=== PATIENT | female | born 1945 | race Caucasian/White ===

== ENCOUNTER → 2017-07-10 | Outpatient (CLI) | payer MEDICARE ==
[~2017-07-10] MED LIST: ASCO-78 PO; CALC600T4 PO; CYAN25008 PO; IOHEXOL 180 MG/ML 10 ML VIAL. ONE; NAPR220C4 PO; TAMO20TA PO; methylPREDNISolone ACETATE 40 MG/ML VIAL. ONE; methylPREDNISolone ACETATE 80 MG/ML VIAL. ONE
--- NOTE | 2017-07-10 11:21 | PN ---
DATE: 07/10/2017 PROGRESS NOTE FOR PAIN CLINIC DIAGNOSES: Lumbar radiculopathy with lumbar spinal stenosis and post-lumbar laminectomy syndrome. HISTORY OF PRESENT ILLNESS: The patient is a 72-year-old female who returns for followup status post lumbar epidural steroid injection, last seen in 02/2016. The patient did very well at about 90% improvement overall with still pain returning now for about 10 days only, she said in the low back and right lower extremity radiating into the posterior gluteus, posterior thigh, posterior calf, rating at a 10 on a scale of 10 at its worst, it is a 6-7 on a scale of 10 at its least, average about 9 over the last 10 days. The patient reports no new injury or accident that she is aware of to increase the pain. It is a cramping pain. It is sharp, dull, shooting and becomes unbearable at times. The patient reports it is very similar to that she had in 02/2016 in the right leg. The patient reports it awakens her from sleep. She sleeps about 3-4 hours a time. She has to reposition, but she can get back to sleep after that. The patient reports no new motor or sensory deficits, no new bowel or bladder incontinence or other complaints. PAST MEDICAL HISTORY: Significant for carcinoma in situ, ductal 2014, status post radiation therapy, previous history of arthritis. PAST SURGICAL HISTORY: Surgeries include lumbar laminectomy in 2001, appendectomy, hysterectomy and breast lumpectomy. CURRENT MEDICATIONS: List shows tamoxifen, vitamin C, calcium, daily baby aspirin, Aleve and vitamin B12. ALLERGIES: The patient has no known drug allergies. FAMILY HISTORY: Significant for no major medical problems or conditions that she knows of. SOCIAL HISTORY: The patient does not drink, does not smoke or use other tobacco products. He is , lives locally in [place], [place] and is currently retired. REVIEW OF SYSTEMS: The patient's review of systems is positive for those items mentioned in history of present illness. All systems reviewed is otherwise negative and well documented on the patient's chart. PHYSICAL EXAMINATION: VITAL SIGNS: Today, the patient's blood pressure is 150/64, pulse 65, respirations 18, temperature is 98.4 degrees Fahrenheit. Height is 5 feet 7 inches, weighs 175 pounds. GENERAL: The patient is awake, alert, oriented, appropriate, has a very pleasant demeanor. HEENT: Head shows normocephalic, atraumatic. The patient wears eyeglasses. Extraocular movements are intact and symmetrical. Oral cavity shows mucous membranes moist and pink. Dentition is intact. NECK: Shows anterior throat supple without palpable lymphadenopathy noted. Swallow reflex is symmetrical. CHEST: Shows normal on inspection. Breath sounds are clear to auscultation bilaterally. HEART: Shows S1 and S2 clear. No murmurs auscultated. ABDOMEN: Soft, nontender, nondistended. No rebound or guarding demonstrated. BACK: Shows spine grossly in the midline. Normal-appearing thoracic kyphosis. Some slight flattening of lumbar lordotic curvature with lumbar paraspinous musculature showing symmetry. On inspection with palpation shows some [id number] tenderness in the low lumbar distribution bilaterally, but only diffusely without radiation with palpation. No radiation, no trigger points demonstrated. No tenderness over the sacrum or sacroiliac regions. The patient shows good rotational motion of the lumbar spine, both laterally greater than 10 degrees right and left as well as extension greater than 10 degrees and forward flexion greater than 45 degrees without difficulty. LOWER EXTREMITIES: Show deep tendon reflexes at 1+ in the patellar and tendo calcaneus tendons are equal. Motor exam is strong with 5/5 dorsiflexion, extension, quadriceps and hamstring flexion and symmetrical. Peripheral pulses are 1+ posterior tibial and dorsalis pedis pulses. No peripheral edema is noted. No clubbing, no cyanosis. Lower extremities are warm and dry to touch, equal in color and appearance. Options were discussed with the patient. The patient's old chart was reviewed as her current medication regimen and updated. Current review of systems updated today as well and we will proceed with a lumbar epidural steroid injection. She did very well with this last time. Risks were again discussed including, but not limited to bleeding, infection, possibility of epidural hematoma and subsequent neurologic compromise, dural puncture, headaches, spinal cord and/or nerve damage, side effects of steroid medication and poor results regarding pain control. The patient understands and wishes to proceed. The patient will return to clinic in approximately 2 weeks for followup, was counseled on return appointment, activity level and side effects to be aware of. DIAGNOSES: Lumbar radiculopathy with lumbar spinal stenosis and post-lumbar laminectomy syndrome. PROCEDURES: Lumbar epidural steroid injection in translaminar approach at L5-S1 level using C-arm fluoroscopic guidance under sterile prep and drape using local anesthetic. Medication injected is a total of 120 mg Depo-Medrol plus 10 mL of preservative-free normal saline and 2 mL of Isovue for contrast. CONDITION AT DISCHARGE: Stable. The patient tolerated the procedure well, had no complications. KRISTIN BARTH MD DR: VARSHA/nts JOB#: [id number] / [id number]
== END | disposition home or self-care (01) ==
LOC: PNCL 08:13
PROVIDERS: ATTEND Anesthesiology
DX: M48.06 Spinal stenosis, lumbar region (principal); M54.16 Radiculopathy, lumbar region; M96.1 Postlaminectomy syndrome, not elsewhere classified; M19.90 Unspecified osteoarthritis, unspecified site; Z90.710 Acquired absence of both cervix and uterus
CPT/HCPCS: 62323; J1030; J1040

== ENCOUNTER → 2017-07-25 | Outpatient (CLI) | payer MEDICARE ==
[~2017-07-25] MED LIST changes: +ASPI-482 PO
--- NOTE | 2017-07-25 16:58 | PAIN ---
DATE OF SERVICE: 07/25/2017 PROGRESS NOTE FOR PAIN CLINIC DIAGNOSES: Lumbar radiculopathy with lumbar spinal stenosis and post-lumbar laminectomy syndrome. HISTORY OF PRESENT ILLNESS: The patient is a 72-year-old female who returns for followup status post lumbar epidural steroid injection x1 on 07/10/2016. The patient did very well initially, but only about 30% improvement overall in the right lower extremity, now with some numbness and tingling in her toes, pain in the right hip, pain in the posterior lateral thigh and in the lower leg, to the calf, and lateral posterior aspect, as well as tingling in the right toes, aching and dull pain, worse with standing and walking, better with rotational movement. She is turning and getting up and down, changing positions much more comfortably. She is getting out of bed, changing from standing to sitting, but when she is on her feet for more than about 5 minutes the pain begins to return in the right low back and right leg to a significant extent where she must sit down. This does relieve the pain for the most extent when sitting. The patient reports pain as a 9 on a scale of 10 at its worst, it is average an 8, currently is 7. The patient reports no new motor or sensory deficits, no new bowel or bladder incontinence. Reports she sleeps about 6-8 hours at time, does not awaken her from sleep. PHYSICAL EXAMINATION: VITAL SIGNS: Today, the patient's blood pressure is 140/70, pulse 83, respirations 18, temperature 98.5 degrees Fahrenheit, weight is 173 pounds. GENERAL: The patient is awake, alert, oriented, appropriate, very pleasant demeanor. HEENT: Head shows normocephalic, atraumatic. Extraocular movements are intact and symmetrical. Oral cavity, mucous membranes are moist and pink. Dentition is intact. NECK: Shows anterior throat supple without palpable lymphadenopathy noted. Swallow reflex is symmetrical. CHEST: Shows normal on inspection. Breath sounds clear to auscultation bilaterally. HEART: Shows S1 and S2 clear. No murmurs auscultated. ABDOMEN: Soft, nontender, nondistended. BACK: Shows spine grossly in the midline. Well healed surgical scars noted in the lumbar distribution. Lumbar paraspinous musculature shows firm, but symmetrical upon inspection. Palpation shows some mild tenderness to palpation, but only mildly bilaterally without radiation. No tenderness over the sacrum or sacroiliac regions. EXTREMITIES: Lower extremities showed deep tendon reflexes 1+ in the patellar and tendo calcaneus tendons. Motor exam is strong with 5/5 dorsiflexion and extension and equal. Peripheral pulses are 1+ bilaterally in posterior tibial. No peripheral edema is noted. Options were discussed with the patient and the patient's old chart was reviewed as her current medication regimen updated. Current review of systems updated today as well. We will proceed with a second in the series of lumbar epidural steroid injection with fluoroscopic guidance. Risks were again discussed including, but not limited to bleeding, infection, possibility of epidural hematoma, subsequent neurologic compromise, dural puncture headaches, spinal cord and/or nerve damage, side effects of steroid medication and poor results regarding pain control. The patient understands and wished to proceed. The patient will return to clinic in approximately 2 weeks for followup, was counseled on return appointment, activity level, and side effects to be aware of. DIAGNOSIS: Lumbar radiculopathy with lumbar spinal stenosis post lumbar laminectomy syndrome. PROCEDURE: Lumbar epidural steroid injection in translaminar approach at the L5-S1 level using C-arm fluoroscopic guidance under sterile prep and drape using local anesthetic. MEDICATIONS INJECTED: Total of 120 mg Depo-Medrol plus 10 mL preservative-free normal saline, and 2 mL Isovue for contrast. CONDITION AT DISCHARGE: Stable. The patient tolerated procedure well, had no complications. KRISTIN BARTH MD DR: VARSHA/paul JOB#: [id number] / [id number]
== END | disposition home or self-care (01) ==
LOC: PNCL 10:55
PROVIDERS: ATTEND Anesthesiology
DX: M48.06 Spinal stenosis, lumbar region (principal); M96.1 Postlaminectomy syndrome, not elsewhere classified; M54.16 Radiculopathy, lumbar region
CPT/HCPCS: 62323; J1030; J1040

== ENCOUNTER → 2017-09-11 | Outpatient (CLI) | payer MEDICARE ==
[~2017-09-11] MED LIST changes: -IOHEXOL 180 MG/ML 10 ML VIAL. ONE; -methylPREDNISolone ACETATE 40 MG/ML VIAL. ONE; -methylPREDNISolone ACETATE 80 MG/ML VIAL. ONE
--- NOTE | 2017-09-11 10:47 | KCIC ---
EXAM: Lumbar spine, 3 views. HISTORY: Spondylolisthesis. Right lower extremity radiculopathy and numbness. COMPARISON: None. FINDINGS: Lateral neutral, flexion and extension views of the lumbar spine are obtained. There is grade 1 anterolisthesis of L4 on L5, measuring 9 mm in neutral position and increasing to 10 mm with flexion. There is grade 1 anterolisthesis of L3 on L4, measuring 6 mm in neutral position and increasing to 7 mm with flexion and decreasing to 5 mm with extension. There is grade 1 anterolisthesis of L5 on S1, measuring 4 mm in neutral position without significant change between flexion and extension. There is degenerative endplate remodeling at multiple levels. There is facet arthropathy at all levels. IMPRESSION: 1. Multilevel degenerative change throughout the lumbar spine, described above. 2. Grade 1 anterolisthesis of L4 on L5, and to a lesser extent, L3 on L4 and L5 on S1. This slightly changes between flexion and extension at the aforementioned levels. Electronically signed by: Rosie Graejda MD (09/11/2017 10:44 AM) [email or web address]
== END | disposition home or self-care (01) ==
LOC: KCIC 09:53
PROVIDERS: ATTEND Neurological Surgery
DX: M51.16 Intervertebral disc disorders with radiculopathy, lumbar region (principal); M43.16 Spondylolisthesis, lumbar region; R20.0 Anesthesia of skin
CPT/HCPCS: 72100

== ENCOUNTER → 2017-09-23 | Outpatient (CLI) | payer MEDICARE ==
--- NOTE | 2017-09-23 16:02 | EKG ---
[facility] [address] [place] [address] Test Date: 2017-09-23 Test Time: 15:57:47 Pat Name: HAVEN BEJARANO Department: Room: Gender: F Chair Post Machine Operator: DORIS : 1945 Requested By: CHARLIE GODFREY Order Number: [id number] Reading MD: Gallo Burk Measurements Intervals [place] Rate: 67 P: 0 TN: 154 QRS: -1 QRSD: 70 T: 3 QT: 406 QTc: 432 Interpretive Statements SINUS RHYTHM CONSISTENT WITH INFERIOR INFARCT Electronically Signed On 09-25-2017 14:15:48 CDT by Gallo Burk
[2017-09-23 16:24] LABS: BASO % 1 % (0-3); EOS % 3 % (0-3); HEMATOCRIT 37.2 % (36.0-47.0); HEMOGLOBIN 12.3 g/dL (12.0-15.5); LYMPH # 1.5 x10^3/uL (1.0-4.8); LYMPH % 28 % (24-48); MEAN CORPUSCULAR HEMOGLOBIN 30 pg (25-35); MEAN CORPUSCULAR HGB CONC 33 g/dL (31-37); MEAN CORPUSCULAR VOLUME 91 fL (79-100); MONO % 9 % (0-9); NEUT % 59 % (31-73); PLATELET COUNT 157 x10^3/uL (140-400); WHITE BLOOD COUNT 5.4 x10^3/uL (4.0-11.0)
[2017-09-23 16:40] LABS: ALBUMIN 3.7 g/dL (3.4-5.0); ALBUMIN/GLOBULIN RATIO 1.1 (1.0-1.7); CALCIUM 10.1 mg/dL (8.5-10.1); CREATININE 0.9 mg/dL (0.6-1.0); GFR 61.2; POTASSIUM 4.7 mmol/L (3.5-5.1); TOTAL BILIRUBIN 0.2 mg/dL (0.2-1.0); TOTAL PROTEIN 7.1 g/dL (6.4-8.2)
[2017-09-23 16:42] LABS: INR 0.9 (0.8-1.1); PROTHROMBIN TIME PATIENT 11.8 SEC (11.7-14.0)
== END | disposition home or self-care (01) ==
LOC: SURGPAT 13:46
PROVIDERS: ATTEND Neurological Surgery
DX: M51.36 Other intervertebral disc degeneration, lumbar region (principal)
CPT/HCPCS: 36415; 80053; 85025; 85610; 85730; 87641; 93005

== ENCOUNTER 2017-10-03 08:00 | Inpatient (IN) | payer MEDICARE ==
[~2017-10-03] VITALS: Ht 170.2 cm; Wt 78.9 kg
[2017-10-03] VITALS (11 sets, daily range): BP systolic 115–157; BP diastolic 56–81
--- NOTE | 2017-10-03 06:54 | PREOP HP ---
DATE OF SERVICE: 10/03/2017 HISTORY OF PRESENT ILLNESS: The patient is a pleasant 72-year-old who in 2001 underwent a lumbar laminectomy and did well. The current problem is low back pain and pain which radiates into her right leg. Pain can radiate into the right anterior thigh and anterior leg. She feels there is weakness in her right leg and foot. She has undergone epidural steroid injections recently and saw that the first injection helped but the following injections did not help. When she walks distances, she rates her pain as a 7/10. Stairs are particularly difficult for her as well. Sitting helps her. She takes ibuprofen. PAST MEDICAL HISTORY: Breast cancer and back pain. PAST SURGICAL HISTORY: Lumpectomy in the left breast 2013, lumbar laminectomy 2001, appendectomy 1987, hysterectomy in 1985. FAMILY HISTORY: Cancer. SOCIAL HISTORY: Retired. . Does not smoke. Never drinks alcohol. ALLERGIES: No known drug allergies. CURRENT MEDICATIONS: Calcium, vitamin D, vitamin C, vitamin B12, tamoxifen, aspirin and Aleve. REVIEW OF SYSTEMS: A 12-point review of systems was obtained and noncontributory except for that mentioned above. NEUROSURGERY EXAMINATION: GENERAL APPEARANCE: Alert, pleasant, no acute distress. HEAD: Normocephalic, atraumatic. SKIN: Warm and dry. MUSCULOSKELETAL: Lumbar paraspinal muscle bulk is normal, restricted range of motion of the lumbar spine, [id number] tenderness of lower lumbar spine with palpation, normal range of motion of the lower extremities bilaterally. EXTREMITIES: No clubbing, cyanosis, or edema. NEUROLOGIC: Alert and oriented x 3, normal recent and remote memory, strength 5/5 in bilateral lower extremities except 4/5 right foot dorsiflexion, sensory was intact to light touch in the lower extremities bilaterally except for decrease in the distal right anterior thigh and anterior leg raising the dorsum of her right foot, reflexes were trace and symmetric in bilateral lower extremities, negative straight leg raising bilaterally, normal gait. IMAGING: I reviewed lumbar MRI scan. On that study, there are 2 principal abnormalities. The first is hypertrophic facet disease and thickened ligamentum flavum, which markedly narrows the right lateral recess, neural foramen at L4-L5 and at L5-S1 on the right, there is a large far lateral herniated disc. In addition, I reviewed lumbar flexion and extension x-rays, very limited motion at L4-L5 both flexion and extension. PLAN: At this point, I recommend a laminectomy in L4-L5 and posterior instrumented fusion with posterolateral fusion at L4-L5. Also at L5-S1 on the right a far lateral microdiscectomy. Surgical options were discussed with the patient. She understands. She would like to proceed. We will make the arrangements. CHARLIE GODFREY MD DR: HAFSA/paul JOB#: [id number] / [id number] MARIE
[~2017-10-03 08:00] MED LIST changes: +BACITRACIN 50,000 UNIT in IV NORMAL SALINE 1000ML BAG 1,000 ML IRR ONE; +BUPIVAC MPF-EPI 0.5%-1:200000 30 ML VIAL. ONE; +GELATIN SPONGE SIZE 100. ONE; +KETOROLAC 60 MG/2 ML INJ FOR OR. ONE; +THROMBIN TOPICAL 20,000 UNIT SPRAY.SYRN KIT TP ONE
[2017-10-03] MEDS ORDERED: OMEP20CA9 PO (08:27)
[2017-10-03] MEDS ORDERED: IV RINGERS,LACTATED 1000ML 1,000 ML IV SCH ×2 (08:45→10:45)
[2017-10-03] MEDS ORDERED: ONDANSETRON PF 4 MG/2 ML VIAL. ONE (09:53)
[2017-10-03] MEDS ORDERED: LIDOCAINE 2% PF Vial for OR 5 ML VIAL. ONE (09:53)
[2017-10-03] MEDS ORDERED: PROPOFOL 20 ML IV ONE (09:53)
[2017-10-03] MEDS ORDERED: DEXAMETHASONE SOD PHOS 20 MG/5 ML VIAL. ONE (09:53)
[2017-10-03] MEDS ORDERED: PROPOFOL 50 ML IV ONE (09:54)
[2017-10-03] MEDS ORDERED: REMIFENTANIL 2 MG VIAL. IV ONE ×2 (09:54→14:12)
[2017-10-03] MEDS ORDERED: fentaNYL PF VIAL 100 MCG/2 ML VIAL ONE (09:54)
[2017-10-03] MEDS ORDERED: ROCURONIUM 50 MG/5 ML VIAL. ONE (09:54)
[2017-10-03] MEDS ORDERED: PROPOFOL 100 ML IV ONE (10:19)
[2017-10-03] MEDS ORDERED: HYDROmorphone 2 MG/ML VIAL IV PRN (10:45)
[2017-10-03] MEDS ORDERED: ONDANSETRON PF 4 MG/2 ML VIAL. IV PRN ×2 (10:45→12:15)
[2017-10-03] MEDS ORDERED: PROCHLORPERAZINE 10 MG/2 ML VIAL. IV PRN (10:45)
[2017-10-03] MEDS ORDERED: LIDOCAINE 1% PF 2 ML VIAL. ID PRN (10:45)
[2017-10-03] MEDS ORDERED: fentaNYL PF VIAL 100 MCG/2 ML VIAL IV PRN ×3 (10:45→12:15)
[2017-10-03] MEDS ORDERED: PHENYLEPHRINE 10 MG/ML VIAL. ONE (11:09)
[2017-10-03] MEDS ORDERED: CALCIUM CARBONATE 500 MG TAB.CHEW PO PRN (12:15)
[2017-10-03] MEDS ORDERED: oxyCODONE/APAP 5/325 1 TAB TABLET PO PRN ×2 (12:15)
[2017-10-03] MEDS ORDERED: 0.9 % SODIUM CHLORIDE 10 ML DISP.SYRIN. IV PRN (12:15)
[2017-10-03] MEDS ORDERED: diphenhydrAMINE 50 MG/ML VIAL IV PRN (12:15)
[2017-10-03] MEDS ORDERED: diphenhydrAMINE HCL 25 MG CAPSULE PO PRN (12:15)
[2017-10-03] MEDS ORDERED: ACETAMINOPHEN 325 MG TABLET. PO PRN (12:15)
[2017-10-03] MEDS ORDERED: MAG HYDROX/ALUMINUM HYD/SIMETH 30 ML ORAL.SUSP PO PRN (12:15)
[2017-10-03] MEDS ORDERED: NALOXONE 0.4 MG/ML VIAL. IV PRN (12:15)
[2017-10-03] MEDS ORDERED: MAGNESIUM HYDROXIDE 2,400 MG/30 ML ORAL.SUSP. PO PRN (12:15)
[2017-10-03] MEDS ORDERED: TAMOXIFEN 10 MG TABLET PO SCH (13:00)
[2017-10-03] MEDS ORDERED: ceFAZolin SODIUM 1 GM in IV DEXTROSE 5% 50 ML IV SCH (14:00)
[2017-10-03] MEDS ORDERED: DESFLURANE > 120 MINUTES IH ONE (14:38)
--- NOTE | 2017-10-03 15:48 | RAD ---
CT study lumbar spine without contrast Indications: Low back pain. Right lower extremity radiculopathy. Technique: Noncontrast helical CT scanning of the lumbar spine was performed. Multiplanar 2-D reconstructions were generated. PQRS Compliance Statement: One or more of the following individualized dose reduction techniques were utilized for this examination: 1. Automated exposure control 2. Adjustment of the mA and/or kV according to patient size 3. Use of iterative reconstruction technique Findings: Mild levoscoliosis is seen. No compression fracture or discitis or osteolytic process is seen. The transverse processes are intact. Grade 1 anterolisthesis of L3-4 and L4-5 anterolisthesis and L5-S1 is seen without spondylolysis. Degenerative osteoarthritis of both SI joints is seen At T12-L1, no focal disc protrusion or spinal canal stenosis or neural foraminal narrowing is seen. At L1-L2, mild diffuse disc bulging is seen. No significant spinal canal stenosis or neural foraminal narrowing is seen. At L2-3, mild diffuse disc bulge is seen. Mild degenerative facet arthropathy and ligament fall hypertrophy and mild degenerative endplate spurring is seen. These findings combine to form a mild spinal canal stenosis. At L3-4, mild diffuse disc protrusion is seen with mild degenerative endplate spurring. Moderate degenerative facet arthropathy and ligamentum flavum hypertrophy is evident. These findings in association with the anterolisthesis combine to form a mild to moderate spinal canal stenosis worse on the right side. There is mild narrowing of the right neural foramen and moderate narrowing of the left neural foramen.. At L4-5, moderate diffuse disc protrusion is seen worse on the right side which extends into the right neural foramen (more focally prominent disc protrusion here) and may impinge the exiting right L4 nerve root. It extends into the left neural foramen as well. There is mild degenerative endplate spurring. There is severe facet arthropathy and ligamentum flavum hypertrophy. These findings in association with the anterolisthesis combine to form a moderate spinal canal stenosis at this level worse on the right side. There is narrowing of the lateral recesses bilaterally worse on the right side which may impinge the descending right L5 nerve root. There is moderate narrowing of the left neural foramen and severe narrowing of the right neural foramen. At L5-S1, there is a mild disc protrusion. There is more focally prominent disc protrusion within the right neural foramen which may impinge the exiting right L5 nerve root. Severe facet arthropathy and ligamenta flava hypertrophy is seen. These findings in association with the anterolisthesis combine to form a mild spinal canal stenosis. There is severe narrowing of the right neural foramen and mild narrowing of the left neural foramen. IMPRESSION: No compression fracture. Degenerative lumbar spondylosis and anterolisthesis as discussed above. Multilevel spinal canal stenosis and neural foraminal narrowing as discussed above. See discussion above for each level.
[2017-10-03] MEDS ORDERED: PANTOPRAZOLE 40 MG TABLET.DR. PO SCH (16:30)
[2017-10-03] MEDS: fentaNYL PF VIAL 100 MCG/2 ML VIAL IV PRN ×2 (17:06→17:14)
[2017-10-03] MEDS: MORPHINE SULFATE 4 MG/ML DISP.SYRIN. IV PRN ×2 (17:21→17:36)
[2017-10-03] MEDS: POTASSIUM CL 20MEQ D5-0.45NACL 1,000 ML IV SCH ×2 (18:13→20:29)
[2017-10-03] MEDS: DOCUSATE SODIUM 100 MG CAPSULE. PO SCH (20:39)
[2017-10-03] MEDS: METHOCARBAMOL 750 MG TABLET PO SCH ×2 (20:39→21:00)
[2017-10-03] MEDS: ceFAZolin SODIUM IV Push 1 GM VIAL. IVP SCH (20:42)
[2017-10-04 02:44] VITALS: BP 121/65
[2017-10-04] MEDS: ceFAZolin SODIUM IV Push 1 GM VIAL. IVP SCH ×2 (04:18→12:43)
[2017-10-04 06:33] VITALS: BP 111/63
[2017-10-04] MEDS: DOCUSATE SODIUM 100 MG CAPSULE. PO SCH (08:02)
[2017-10-04] MEDS: METHOCARBAMOL 750 MG TABLET PO SCH (08:03)
[2017-10-04] MEDS ORDERED: ASPIRIN ENTERIC COATED 81 MG TABLET.DR. PO SCH (09:00)
--- NOTE | 2017-10-04 09:32 | DISCH ---
DISCHARGE INSTRUCTIONS Condition on Discharge Condition on Discharge: Stable Activity After Discharge Activity Instructions for Disc: Activity as tolerated, Avoid exertion Bathing Instructions: Shower-keep dressing dry Lifting Instructions after Dis: No heavy lifting, No pulling or pushing, Do not lift >10 pounds Driving Instructions after Dis: No driving for 2 weeks Diet after Discharge Additional Diet Restrictions: resume home diet Wound Incision Care Wound/Incision Care: Ice to area for comfort Other wound/incision instructi: may remove dressing in 48 hrs if dry then may shower- no soaking Contacting the after DC Call your doctor for: Concerns you may have Follow-Up Follow up with: Dr. Godfrey's nurse in 2 weeks [phone] CHARLIE GODFREY MD Oct 04, 2017 09:32
[2017-10-04] MEDS ORDERED: DOCU-109 PO (09:34)
[2017-10-04] MEDS ORDERED: METH750T2 PO (09:34)
[2017-10-04] MEDS ORDERED: OXYC1TAB7 PO (09:34)
[2017-10-04 11:00] VITALS: BP 125/65
--- NOTE | 2017-10-04 16:18 | OP ---
DATE OF SURGERY: 10/03/2017 PREOPERATIVE DIAGNOSES: 1. Far lateral foraminal disc herniation with lumbar radiculopathy, L5-S1, right. 2. Lumbar stenosis to the L4-L5. 3. Spondylolisthesis L4-L5 with motion on lumbar flexion and extension images. OPERATION PERFORMED: 1. Right far lateral incision and approach using the METRx system with transforaminal exposure and excision of far lateral foraminal disc herniation L5-S1, right. 2. Lumbar laminectomy L4-L5 for lumbar spinal stenosis. 3. Posterior instrumentation L4-L5 with posterolateral fusion L4-L5 using allograft and autograft bone. The operation was done with stimulated EMG monitoring, fluoroscopy, microscopic dissection, BrainLAB guidance, bone marrow aspiration. SURGEON: Kevan Godfrey M.D. AIRCRAFT ENGINE MECHANIC OVERHAUL: RONEN Stafford assisted with the surgery. She assisted with the lateral microdiscectomy as well as the laminectomy, posterior instrumentation, posterolateral fusion. OPERATIVE INDICATIONS: The patient is a very pleasant 72-year-old woman who developed intractable back and right leg pain which failed conservative measures. On imaging studies, she had the above-mentioned findings and I recommended lumbar surgery at L4-L5 and L5-S1 to deal with her severe right lumbar radiculopathy. I spoke with her about the surgery, the risks, technique and the expected postoperative course and she wished to go ahead. DESCRIPTION OF PROCEDURE: Following general endotracheal anesthesia, the patient was positioned prone on the Jeanmarie table. Her lumbar region was prepped and draped in standard fashion. FARIDEH hose and AV impulse boots were applied for DVT prophylaxis. The microscope was draped. Fluoroscopy was draped and brought into the field. Ancef 2 grams given less than 1 hour prior to initiation of the surgery. Using fluoroscopic guidance, the BrainLAB pins were inserted into the left iliac crest and the BrainLAB system was initialized. A small incision was then made and a far right lateral paraspinal region allowing access to the L5-S1 far lateral portion of the facet. I used METRx dilators and placed a 22 mm portal. I tilted the table and brought in the microscope and through the microscope I drilled through the lateral portion of the facet. I then visualized the exiting L5 root and with the micro nerve root retractor, retracted the root cephalad and there was a very large subligamentous disc herniation. I incised the capsule with an arachnoid knife and then performed a very generous discectomy removing multiple large extruded fragments. As I worked, the nerve root became very well decompressed and moved back to much more normal position. Following this, then I irrigated copiously with antibiotic solution. I gently withdrew the METRx tube and assured myself of excellent hemostasis. The fascia was closed with a single stitch. The subcutaneous was closed with absorbable sutures and the skin was closed with 4-0 subcuticular stitch. The table was then tilted back toward me and I made a midline incision extending from superior L4 to inferior L5. I dissected down through the skin and subcutaneous tissue and reflected the paraspinal muscles and placed self-retaining retractors beginning on the right side and I used high speed air drill to drill down a generous laminectomy right direct and peeled away very large hypertrophic thickened ligamentum flavum performing a very generous partial foraminotomy. As I peeled this material back and created my exposure, the dura became very well decompressed and moved laterally. I drilled across the midline and trimmed with the 2.5 and 4 mm feeling Kerrison's. I did use small amounts of bone wax where necessary. I then exposed the lateral portions of the facets at L4 and L5 and the transverse processes which I excoriated with high speed air drill. I drilled into the posterior aspect of the pedicles, passed a black ball with stimulated EMG monitoring followed by tap, followed by screw placement. I used the [employer] system and placed 6.5 screws and a 55 mm rosalina and nuts were applied and torqued. I did aspirate 20 mL of bone marrow from the right iliac crest, which was used with allograft bone and the bone I saved from the laminectomy was also used to augment the bone construct which was then placed in the lateral gutter. This accomplished on the right, then I went to the left side and in a similar fashion, I exposed the pedicles and the transverse processes which I excoriated and I packed bone with allograft and autograft into the left gutter. I drilled in the posterior aspect of the pedicles using the [employer] system as well as anatomic landmarks, passed the black ball followed by tap, followed by screw placement. Again, I placed 6.5 screws. The rosalina was attached on the left side. The system was torqued. I took fluoroscopic images which I felt looked quite good. I irrigated copiously with antibiotic solution and I closed the wound in layers with absorbable suture and the skin was closed with a 4-0 subcuticular stitch. The operation went very well and the patient was awakened uneventfully. I was quite pleased with the surgery. KEVAN GODFREY MD DR: HAFSA/paul JOB#: [id number] / [id number] MARIE
--- NOTE | 2017-10-07 14:21 | PATHOLOGY ---
PATHOLOGY REPORT * * * * * * * * FINAL DIAGNOSIS: Segments of fibrocartilaginous, fibroadipose, and skeletal muscle tissue and bone, lumbar decompression and disc: - Degenerative changes of fibrocartilaginous tissue. COMMENT: There is no evidence of an acute inflammatory process or malignancy. (JPM:mml; 10/07/2017) REPORT ELECTRONICALLY SIGNED BY: Quoc Serna M.D. DATE/TIME: 10/07/2017 14:20 * * * * * * * * GROSS PATHOLOGY: Received in formalin labeled "Helen Calixto, lumbar decompression and disc," are multiple segments of yellow and gaxiola-white rubbery and gritty tissue measuring 6.4 x 3.1 x 1.3 cm in aggregate dimensions, containing small fragments of bone. The tissue is submitted representatively in cassette A1, following decalcification. (TSD; 10/04/2017) INITIAL CPT CODE(S): A; 90637, 07610 Professional services performed [place] [facility] [place] [address] Technical services performed by [facility] at [address] [place] [address] [address], [place] [address]. SPECIMEN(S) RECEIVED: A.Lumbar decompression CLINICAL HISTORY: Herniated disc with radiculopathy, lumbar spondylolisthesis, stenosis PATIENT: HELEN CALIXTO /AGE: 7 1945 (Age: 72) PATIENT #: [id number] ALT CASE #: SPECIMEN COLLECTION DATE: 10/03/2017 SPECIMEN RECEIVED DATE: 10/04/2017 [facility] - [address] [place] [address] - PHONE: [phone] * * * END OF REPORT * * *
== END 2017-10-04 13:00 | disposition home or self-care (01) | DRG 460 ==
LOC: OPSVCIP 08:00 → 4 SOUTHEST 17:53
PROVIDERS: ADMIT Neurological Surgery; ATTEND Neurological Surgery
PROC: 0SG0071 Fusion of Lumbar Vertebral Joint with Autologous Tissue Substitute, Posterior Approach, Posterior Column, Open Approach (ICD-10-PCS; principal; 2017-10-04)
PROC: 0SB40ZZ Excision of Lumbosacral Disc, Open Approach (ICD-10-PCS; 2017-10-04)
PROC: 01NB0ZZ Release Lumbar Nerve, Open Approach (ICD-10-PCS; 2017-10-04)
PROC: 07DR3ZZ Extraction of Iliac Bone Marrow, Percutaneous Approach (ICD-10-PCS; 2017-10-04)
PROC: 4A11X4G Monitoring of Peripheral Nervous Electrical Activity, Intraoperative, External Approach (ICD-10-PCS; 2017-10-04)
DX: M51.16 Intervertebral disc disorders with radiculopathy, lumbar region (principal); M43.16 Spondylolisthesis, lumbar region; M48.061 Spinal stenosis, lumbar region without neurogenic claudication; Z85.3 Personal history of malignant neoplasm of breast; Z90.710 Acquired absence of both cervix and uterus; Z90.49 Acquired absence of other specified parts of digestive tract; M51.17 Intervertebral disc disorders with radiculopathy, lumbosacral region
CPT/HCPCS: 36415; 72131; 76000; 86850; 86900; 86901; 88304; 88311; C1713; J0690; J1100; J1885; J2270; J2405; J2704; J3010; J3490; J7030; J7120; 97530; J2001

== ENCOUNTER → 2017-12-30 | Outpatient (CLI) | payer MEDICARE | END | disposition home or self-care (01) | LOC: KCIC 10:03 | DX: M43.16 Spondylolisthesis, lumbar region (principal); Z98.890 Other specified postprocedural states | CPT/HCPCS: 72100 ==